=== PATIENT | male | born 1945 | race Caucasian/White ===

== ENCOUNTER 2017-02-05 08:04 | Outpatient (CLI) | payer MEDICARE, BC ==
[~2017-02-05] VITALS: Ht 182.9 cm; Wt 84.1 kg
--- NOTE | ~2017-02-05 | HEMODYNAMI ---
PATIENT:ANABELL CANDELARIO MEDICAL RECORD: [id number] : 43 LOCATION:[facility] ADMISSION DATE: 02/05/17 Generatedon:02/05/201715:25 Patient name: ANABELL CANDELARIO Patient #: [id number] SSN: : 1945 Date of study: 02/05/2017 Page: Of Hemodynamic Procedure Report Patient Data Patient Demographics Procedure consent was obtained First Name: ANABELL Gender: Male Last Name: ANRDEE : 1945 Middle Initial: A Age: 71 year(s) Patient #: [id number] Race: Unknown Additional ID: [id number] Contact details [address]: [address] [place] [address] State: [place] City: [place] Zip code: [address] Admission Admission Data Admission Date: 02/05/2017 Admission Time: 8:04 Height (in.): 72 BSA: 2.06 (m2) Height (cm.): 182.88 BMI: 25.09 (kg/m2) Weight (lbs.): 185 Weight (kg.): 83.91 Lab Results Lab Result Date: 02/05/2017 Lab Result Time: 1:10 Biochemistry Name Units Result Min Max CK-MB ng/ml 1.2 --(-*--)-- 0 3.6 Creatinine l 63 --(*---)-- 21 215 Kinase Troponin l ng/ml 0.018 --(-*--)-- 0 0.06 Procedure Procedure Types Cath Procedure Diagnostic Procedure LHC Coronaries w/Grafts PCI Procedure Coronary Stent Initial Miscellaneous Procedures Moderate Sedation up to 45 minutes Procedure Description Procedure Date Procedure Date: 02/05/2017 Procedure Start Time: 14:52 Procedure End Time: 15:19 Procedure Staff Name Function Luan Jensen RT Monitor Ovidio Paige MD Performing Physician Vianca Perdomo RN Nurse Vianney Fine RT Scrub Procedure Data Cath Procedure Fluoroscopy Diagnostic fluoroscopy Total fluoroscopy Time: time: 10.2 min 10.2 min Diagnostic fluoroscopy Total fluoroscopy dose: dose: 505.69 mGy 505.69 mGy Contrast Material Contrast Material Type Amount (ml) Isovue 300 74 Entry Location Entry Primary Successful Side Size Upsize Upsize Entry Closure Succes sful Closure Location (Fr) 1 (Fr) 2 (Fr) Remarks Device Remarks Femoral Right 5 Fr Exoseal artery Diagnostic catheters Device Type Used For End Catheter Placement Diagnostic Infinity 5Fr Left Coronary JL 6 catheter Angiography Cordis 5Fr 3DRC Catheter SVG Angiography (MP) Procedure Complications No complications Procedure Medications Medication Administration Route Dosage Oxygen NC 2 l/min Heparin Flush Bag added to field 2 bags (1000units/500ml NS) Lidocaine 2% added to field 20 Benadryl I.V. 50 mg Versed I.V. 1 mg Fentanyl I.V. 50 mcg Versed I.V. 1 mg Fentanyl I.V. 50 mcg Versed I.V. 1 mg Fentanyl I.V. 50 mcg Heparin Bolus I.V. 4000 units Integrilin (Bolus I.V. 7.3 ml 2mg/ml) Plavix P.O. 600 mg Hemodynamics Rest BSA: 2.06 (m2) HGB: 14.8 (g/dl) O2 Consumption: Estimated: 228.53 (ml/min) O2 Co nsumption indexed: Estimated:110.94 (ml/min/m) Heart Rate: 58 (bpm) Snapshots Pre Cath Intra NCS Post Cath Vital Signs Time Heart Resp SPO2 NIBP (mmHg) Rhythm Pain Sedation Rate (ipm) (%) Status Level (bpm) 14:39:33 68 23 99 174/107(144) NSR 0 (11) 10(A) , No pain 14:44:32 55 22 100 Measuring NSR 0 (11) 10(A) , No pain 14:44:43 56 22 100 174/105(160) NSR 0 (11) 10(A) , No pain 14:49:07 62 12 99 163/99(148) NSR 0 (11) 10(A) , No pain 14:54:06 70 18 97 Measuring NSR 0 (11) 10(A) , No pain 14:54:26 67 14 97 163/81(134) NSR 0 (11) 10(A) , No pain 14:58:47 59 19 97 159/89(138) NSR 0 (11) 9(A) , No pain 15:03:05 69 18 96 157/93(129) NSR 0 (11) 9(A) , No pain 15:07:23 68 18 96 138/86(115) NSR 0 (11) 9(A) , No pain 15:11:37 69 16 95 132/84(126) NSR 0 (11) 9(A) , No pain 15:15:51 68 16 95 144/85(110) NSR 0 (11) 10(A) , No pain Medications Time Medication Route Dose Verified Delivered Reason Notes Effectiveness by by 14:38:29 Oxygen NC 2 Ovidio Vianca Per physician l/min Royal Perdomo RN 14:38:38 Heparin Flush added 2 Ovidio Ovidio used for Bag to bags Royal Paige MD procedure (1000units/500ml field NS) 14:38:46 Lidocaine 2% added 20ml Ovidio Ovidio used for to vial Royal Paige MD procedure field 14:39:02 Benadryl I.V. 50 mg Ovidio Vianca Per physician Royal Perdomo RN 14:50:19 Versed I.V. 1 mg Ovidio Vianca for sedation Royal Perdomo RN 14:50:45 Fentanyl I.V. 50 Ovidio Vianca for sedation mcg Royal Perdomo RN 14:52:43 Versed I.V. 1 mg Ovidio Vianca for sedation Royal Perdomo RN 14:52:52 Fentanyl I.V. 50 Ovidio Vianca for sedation mcg Royal Perdomo RN 14:55:11 Fentanyl I.V. 50 Ovidio Vianca for sedation mcg Royal Perdomo RN 14:55:58 Versed I.V. 1 mg Ovidio Vianca for sedation Royal Perdomo RN 15:02:41 Heparin Bolus I.V. 4000 Ovidio Vianca for units Royal Perdomo RN anticoagulation 15:02:49 Integrilin I.V. 7.3 Ovidio Vianca for wasted (Bolus 2mg/ml) ml Royal Perdomo RN antiplatelet 2.7 ml therapy 15:16:00 Plavix P.O. 600 Ovidio Vianca for mg Royal Perdomo RN antiplatelet therapy Procedure Log Time Note 14:20:28 Luan Jensen RT(R) sent for patient. Start room use. 14:20:29 Time tracking: Regular hours 14:20:33 Plan of Care:Hemodynamics will remain stable., Cardiac rhythm will remain stable., Comfort level will be maintained., Respiratory function will remain adequate., Patient/ family verbilizes understanding of procedure., Procedure tolerated without complication., Recovers from procedure without complications.. 14:21:24 Procedure type changed to Cath procedure, Diagnostic procedure, LHC, Coronaries w/Grafts, PCI procedure, Coronary Stent Initial, Miscellaneous Procedures, Moderate Sedation up to 45 minutes 14:38:18 Vital chart was started 14:38:29 Oxygen 2 l/min NC was administered by Vianca Perdomo RN; Per physician; 14:38:38 Heparin Flush Bag (1000units/500ml NS) 2 bags added to field was administered by Ovidio Paige MD; used for procedure; 14:38:46 Lidocaine 2% 20ml vial added to field was administered by Ovidio Paige MD; used for procedure; 14:39:02 Benadryl 50 mg I.V. was administered by Vianca Perdomo RN; Per physician; 14:47:21 ACC Patient presents with Stable Angina CCS Anginal Class 2--Slight limitation of ordinary activity. 14:47:24 Diagnostic Cath status Elective 14:47:59 Patient received from Pre/Post Procedure Room to CCL 3 Alert and oriented. Tansferred to table in Supine position. 14:48:00 Warm blankets applied, and mauro hugger turned on for patient comfort. 14:48:00 Correct patient and procedure confirmed by team. 14:48:01 Signed procedure consent form obtained from patient. 14:48:02 ECG and BP/O2 sat monitors applied to patient. 14:48:03 Baseline sample Acquired. 14:48:06 Rhythm: sinus rhythm 14:48:07 Full Disclosure recording started 14:48:17 H&P Date Dictated: 02/02/2017 Within 30 days and on chart., H&P Addendum completed by physician on day of procedure. (MUST COMPLETE FOR ALL OUTPATIENTS). 14:48:18 Pre-op teaching completed and patient verbalized understanding. 14:48:21 Family in waiting room. 14:48:24 Patient NPO since Midnight. 14:48:27 Is the patient allergic to Iodine/contrast media? No. 14:48:41 Is patient on blood thinner?No 14:48:46 ----Pre-sedation anethsthesia assessment.---- 14:48:46 Patient diabetic? No. 14:48:48 Previous problem with sedation/anesthesia? No ? 14:48:49 Snore? Yes 14:48:50 Sleep apnea? No 14:48:51 Deviated septum? No 14:48:53 Opens mouth fully? Yes 14:48:54 Sticks out tongue? Yes 14:48:56 Airway obstruction? No ? 14:48:58 Dentures? No ? 14:49:02 Pre procedure: right dorsailis pedis pulse 1+ Palpable, but thready & weak; easily obliterated 14:49:04 Patient pain scale 0/10 ?. 14:49:21 IV patent on arrival in left hand with 0.9% NaCl at 10ml/hr. 14:49:55 Lab Result : Hemoglobin 14.8 g/dl 14:49:55 Lab Result : Creatinine 3 mg/dl 14:49:55 Lab Result : BUN 34 mg/dl 14:49:59 Lab results completed and on chart. 14:50:02 Alarms reviewed by R. N. 14:50:02 Right groin area was prepped with chlora-prep and draped in sterile fashion 14:50:03 Sharps counted by scrub and verified by R.N. 14:50:04 Final Timeout: patient, procedure, and site verified with staff and physician. All members of the team are in agreement. 14:50:04 --------ALL STOP TIME OUT------ 14:50:08 Right groin site verified by team. 14:50:10 Physical assessment completed. ASA score P 2 - A patient with mild systemic disease as per Ovidio Paige MD. 14:50:13 Sedation plan: IV Moderate Sedation Versed, Fentanyl 14:50:19 Versed 1 mg I.V. was administered by Vianca Perdomo RN; for sedation; 14:50:45 Fentanyl 50 mcg I.V. was administered by Vianca Perdomo RN; for sedation; 14:52:27 Use device set Femoral Dx 14:52:28 Medline Cath Pack opened to sterile field. 14:52:28 Bag Decanter opened to sterile field. 14:52:28 Acist Syringe opened to sterile field. 14:52:29 St Andrea 260cm J .035 wire opened to sterile field. 14:52:29 Terumo 5Fr [place] Sheath opened to sterile field. 14:52:30 Acist Hand Control opened to sterile field. 14:52:31 Diagnostic Infinity 5Fr Multipack catheter opened to sterile field. 14:52:31 Acist Manifold opened to sterile field. 14:52:32 Tegaderm 4 x 4 opened to sterile field. 14:52:39 Procedure started. 14:52:43 Versed 1 mg I.V. was administered by Vianca Perdomo RN; for sedation; 14:52:50 Local anesthetic to right femoral artery with Lidocaine 2% by Ovidio Paige MD.INITIAL ACCESS ONLY 14:52:52 Fentanyl 50 mcg I.V. was administered by Vianca Perdomo RN; for sedation; 14:52:58 A 5 Fr sheath was inserted into the Right Femoral artery 14:55:11 Fentanyl 50 mcg I.V. was administered by Vianca Perdomo RN; for sedation; 14:55:41 Zero performed for pressure channel P1 14:55:44 Zero performed for pressure channel P1 14:55:58 Versed 1 mg I.V. was administered by Vianca Perdomo RN; for sedation; 14:57:07 A Diagnostic Infinity 5Fr JL 6 catheter was advanced over the wire and used for Left Coronary Angiography. 14:57:16 LCA angiography performed. 14:57:18 Catheter removed. 14:58:09 A Cordis 5Fr 3DRC Catheter () was advanced over the wire and used for SVG Angiography. 15:00:18 FIERRO to LAD angiography performed. 15:00:39 RCA angiography performed. 15:00:48 SVG to RCA angiography performed. 15:02:10 Terumo 6Fr [place] Sheath opened to sterile field. 15:02:11 Merit BasixCompak Inflation Kit opened to sterile field. 15:02:11 Ward Sci Choice PT Extra Support J 300cm .014 gu opened to sterile field. 15:02:16 Catheter removed. 15:02:41 Heparin Bolus 4000 units I.V. was administered by Vianca Perodmo RN; for anticoagulation; 15:02:49 Integrilin (Bolus 2mg/ml) 7.3 ml I.V. was administered by Vianca Perdomo RN; for antiplatelet therapy; wasted 2.7 ml 15:02:52 Medtronic Launcher 6Fr EBU 5.0 guide catheter opened to sterile field. 15:03:58 ACC PCI Site: pLAD has 100% stenosis. 15:04:01 ACC Pre-intervention NICOLE Flow is 3. 15:04:09 6 Fr EBU 5 guide catheter was inserted over the wire 15:04:13 CPTES wire advanced. 15:06:30 Inflation number: 1 A [facility] Burt 1.5 X 15 balloon was prepped and advanced across the Prox LAD, then inflated to 17 GALINA for 0:16 (min:sec). 15:06:51 Balloon removed over the wire. 15:08:01 Lab Result : Troponin l 0.018 ng/ml 15:08:01 Lab Result : Creatinine Kinase 63 l 15:08:01 Lab Result : CK-MB 1.2 ng/ml 15:08:27 Inflation Number: 2 A Biofreedom 2.25 x 11 Stent (No Cost Implant) was prepped and advanced across the Prox LAD. The stent was deployed at 11 GALINA for 0:10 (min:sec). 15:08:35 ACC Post-intervention NICOLE Flow is 3. 15:08:35 Stent catheter was removed intact over wire. 15:08:39 Wire removed. 15:08:47 ACC PCI Site: pCirc has 100% stenosis. 15:08:57 ACC Pre-intervention NICOLE Flow is 1. 15:09:02 CPTES wire advanced. 15:10:20 Patient Height : 182.88 cm 15:10:24 Patient Weight : 83.91 kg 15:11:10 Wire removed. 15:11:12 Pettit Fielder XT J 300cm 0.014 guide wire opened to sterile field. 15:11:22 FIELDER wire advanced. 15:13:57 Wire removed. 15:14:01 Guide catheter removed. 15:14:07 Contrast amount:Isovue 300 74ml. 15:14:13 Sheath removed intact; hemostasis achieved with Exoseal to the Right Femoral artery. 15:14:20 Cordis 6Fr Exoseal opened to sterile field. 15:14:33 Procedure ended.(Physican Out) 15:15:06 Fluoroscopy time 10.20 minutes. 15:15:12 Fluoroscopy dose: 505.69 mGy 15:15:12 Flurop Dose total: 505.69 15:15:13 Sharps counted by scrub and verified by R.N. 15:15:14 Insertion/operative site no bleeding no hematoma. 15:15:17 Post-op/insertion site Right Femoral artery dressed using a 4 x 4 and Tegaderm. 15:15:20 Post right femoral artery:stable 15:15:21 Post Procedure Pulses reassessed and unchanged 15:15:23 Post procedure: right dorsailis pedis pulse 1+ Palpable, but thready & weak; easily obliterated. 15:15:26 Post procedure rhythm: sinus rhythm 15:15:28 Post procedure instruction explained to patient.Patient verbalizes understanding. 15:16:00 Plavix 600 mg P.O. was administered by Vianca Perdomo RN; for antiplatelet therapy; 15:16:16 Procedure and supply charges have been captured, reviewed, submitted and are correct. 15:16:22 Procedure Complication : No complications 15:18:59 Vital chart was stopped 15:19:00 See physician's report for complete and final results. 15:19:03 Report given to Pre/Post Procedure Room. 15:19:06 Patient transfered to Pre/Post Procedure Room with Stretcher. 15:19:08 Full Disclosure recording stopped 15:19:08 Procedure ended. 15:23:30 ACC-PCI Only Patient was given prescriptions, or instructed by Ovidio Paige MD to start/continue the following medications upon discharge: Plavix 15:23:31 End room use (Document Last) Intervention Summary Intervention Notes Time ActionType Lesion and Equipment Action# Pressure Duration Attributes Used 15:06:30 Inflate Prox LAD Ward Sci 1 17 00:16 balloon Burt 1.5 X 15 balloon 15:08:27 [address] stent Prox LAD Biofreedom 2 11 00:10 2.25 x 11 Stent (No Cost Implant) Device Usage Item Name Manufacture Quantity Catalog Number Hospital Part Current Mini mal Lot# / Charge Number Stock Stock Serial# Code Acist Acist 1 [id number] [id number] 107275 908948 20 Tricentis [employer] Bag Microtek 1 2002S 037041 38452 598083 5 Decanter Medical Inc. Medline Cardinal 1 [id number] 705567 63108 611977 5 Cath Pack Health Terumo 5Fr Terumo 1 [id number] 031462 561853 156616 [address] St Andrea 1 935395 835188 559428 706374 30 260cm J .035 wire Acist Hand Acist 1 64383 378934 815577 810719 5 Control Medical Systems Inc Acist Acist 1 02903 443454 595622 070963 5 Flash Ambition [employer] Medical Systems Inc Diagnostic Cardinal 1 [id number] 429150 71130 130279 30 Nirvaha 5Fr Multipack catheter Tegaderm 4 3M 1 1626W 463074 696908 336973 5 x 4 Diagnostic Cardinal 1 [id number] 458479 014991 200979 5 Nirvaha 5Fr JL 6 catheter Cordis 5Fr Cardinal 1 031676 5 [facility] Farmeto Catheter (MP) Terumo 6Fr Terumo 1 [id number] 572031 429598 303142 40 [place] Sheath Ward Sci Ward 1 [id number] 270451 20190207 566249 5 Choice PT Scientific Extra Support J 300cm .014 gu Merit Merit 1 SI2046 933744 235129 552111 15 BasixCompak Medical Inflation Kit Medtronic Medtronic 1 [id number] 704994 40851 449434 0 Launcher 6Fr EBU 5.0 guide catheter Ward Sci Ward 1 [id number] 145262 004422 942506 1 [id number] elicit 1.5 X 15 balloon Biofreedom Biosensors 1 [id number] 449287 226100 5 [id number] 2.25 x 11 [employer] SA Stent (No Cost Implant) Pettit Pettit 1 [id number] 756858 860038 504484 5 Fielder XT Vascular J 300cm 0.014 guide wire Cordis 6Fr Cardinal 1 EX600 333144 392703 301556 10 [facility] Farm[facility] Signature Audit [place] Stage Time Signature Unsigned Intra-Procedure 02/05/2017 Luan Jensen 3:25:27 PM RT(R) Signatures Monitor : Luan Jensen RT Signature : Date : Time : [place] [address] [address]
--- NOTE | ~2017-02-05 | PRO ---
PATIENT:ANABELL CANDELARIO MEDICAL RECORD: [id number] : 43 LOCATION:[facility] ADMISSION DATE: 02/05/17 PROCEDURE PERFORMED BY: PRANAV ABRAMS MD PTCA/LEFT HEART CATHETERIZATION PROCEDURES: 1. Percutaneous transluminal coronary angioplasty stent left anterior descending artery. 2. Left heart catheterization. 3. Selective coronary angiography. 4. Left internal mammary artery angiography. INDICATION: Angina, coronary artery disease. PROCEDURE IN DETAIL: After informed consent was obtained and after detailed explanation of risks, benefits, as well as alternative therapies, the patient elected to proceed with angiogram. The right femoral area was prepped and draped in a normal sterile fashion. The right femoral artery was cannulated via modified Seldinger technique with placement of 6-Russian sheath. All catheters exchanged through this sheath. FINDINGS: Left ventriculogram was not performed due to dye conservation due to renal insufficiency. SELECTIVE CORONARY ANGIOGRAPHY: 1. Left main is with no significant angiographic disease. 2. Left anterior descending is totally occluded. We previously intervened into the proximal left anterior descending opening this up to a nongrafted diagonal in 2010. This is now 99-100% closed in the proximal area. The left anterior descending is then 100% closed after the diagonal. 3. Left internal mammary artery to the distal left anterior descending artery is widely patent. This fills the entire coronary system. 4. Left circumflex is totally occluded. 5. Right coronary artery is totally occluded. 6. All vein grafts are totally occluded. PTCA STENT OF THE PROXIMAL LAD: We were able to wire through the occlusion in the proximal left anterior descending into the diagonal stenting. This was a 2.25 X 11 millimeter BioFreedom stent. Occlusion appears to be an 8 millimeter lesion in a 2.25 vessel 99% stenosed. OVERALL IMPRESSION: Successful percutaneous transluminal coronary angioplasty stent of the left anterior descending going from 99% initial stenosis to 0% residual stenosis. PROCEDURE NOTE [id number] ANABELL CANDELARIO PRANAV ABRAMS MD CC: [id number] DICTATION DATE: 02/05/17 1300 TECHNICAL PROPOSAL WRITER: TC 02/06/17 1300 DEP CLI 02/05/17 [place] [address]
[2017-02-05] MEDS ORDERED: RANEXA1000 MG PO (08:48)
[2017-02-05] MEDS ORDERED: COREG25 MG PO (08:49)
[2017-02-05] MEDS ORDERED: TEKTURNA300 MG PO (08:49)
[2017-02-05] MEDS ORDERED: COUMADIN1 MG PO (08:50)
[2017-02-05 08:52] VITALS: BP 133/85; Ht 182.9 cm; Wt 84.1 kg
[2017-02-05] MEDS ORDERED: LIPITOR80 MG PO (09:02)
[2017-02-05 09:13] LABS: BASOPHILS 0.3 % (0-2); EOSINOPHILS 2.1 % (0-7); HEMATOCRIT 45.3 % (42.0-54.0); HEMOGLOBIN 14.8 g/dL (13.5-17.5); IMMATURE GRANULOCYTES 0.7 % (0-5); LYMPHOCYTES 20.2 % (15-50); MCH 27.6 pg (26.0-34.0); MCHC 32.7 g/dL (31.0-37.0); MCV 84.4 fL (80.0-100.0); MEAN PLATELET VOLUME 9.8 fL (7.4-10.4); MONOCYTES 7.3 % (2-11); NEUTROPHILS 69.4 % (40-80); PLATELET COUNT 127 10x3/uL (130-400); RBC 5.37 10x6/uL (4.20-6.10); RDW 17.4 % (11.5-14.5); WBC 7.3 10x3/uL (4.8-10.8)
[2017-02-05 09:34] LABS: INR 1.05 (0.85-1.17); PROTIME 13.5 SECONDS (11.6-15.0)
[2017-02-05 09:38] LABS: CALC OSMOLALITY 280 mosm/kg (275-300); CALCIUM 9.3 mg/dL (8.5-10.1); CARBON DIOXIDE 21.9 mmol/L (21.0-32.0); CHLORIDE - SERUM 105 mmol/L (98-107); CKMB 1.2 U/L (0.0-3.6); CREATINE KINASE 63 UL (21-232); GLUCOSE 111 mg/dL (74-106); POTASSIUM - SERUM 5.4 mmol/L (3.5-5.1); SODIUM 136 mmol/L (136-145); TROPONIN-I 0.018 ng/mL (0.000-0.060); UREA NITROGEN 34 mg/dL (7-18); eGFR NON AFRICAN AMERICAN 22 mL/min (90-120)
[2017-02-05] MEDS ORDERED: PLAVIX75 MG PO ×2 (12:45→15:44)
--- NOTE | 2017-02-05 17:18 | NUR ---
1550 LYING FLAT, ROOM AIR WITH NO DISTRESS. NSR RATE 65 W NO C/O CHEST PAIN. PULSES PALP X 4. FAMILY AT BEDSIDE. R GROIN 6F EXOSEAL C/D/I WITH NO HEMATOMA OR BLEEDING. WILL MONITOR CLOSELY FOR BLEEDING. 1630 REMAINS FLAT, ALL VITALS WNL. R GROIN 6F EXOSEAL C/D/I. 1715 LAB AT BEDSIDE FOR POST STUDY ENZYMES. R GROIN REMAINS C/D/I WITH NO HEMATOMA OR BLEEDING.
[2017-02-05 18:04] LABS: CKMB 1.2 U/L (0.0-3.6); CREATINE KINASE 61 UL (21-232); CREATININE - SERUM 2.8 mg/dL (0.6-1.3); TROPONIN-I 0.029 ng/mL (0.000-0.060)
--- NOTE | 2017-02-05 18:38 | NUR ---
1830 HOB ELEVATED, EATING SANDWICH. FAMILY AT BEDSIDE. WILL MONITOR R GROIN 6F EXOSEAL FOR BLEEDING OR HEMATOMA.
--- NOTE | 2017-02-05 19:19 | NUR ---
1918 PIV REMOVED WITH BANDAID APPLIED. UP TO BEDSIDE TO DRESS. R GROIN REMAINS C/D/I WITH NO HEMATOMA OR BLEEDING. D/C INSTRUCTIONS DISCUSSED WITH PATIENT AND FAMILY AT BEDSIDE. WHEELED OUT VIA WHEELCHAIR.
== END 2017-02-05 19:24 | disposition home or self-care (01) ==
LOC: D.CATH 08:04
PROVIDERS: Internal Medicine Interventional Cardiology
DX: I25.119 Atherosclerotic heart disease of native coronary artery with unspecified angina pectoris (principal); I25.719 Atherosclerosis of autologous vein coronary artery bypass graft(s) with unspecified angina pectoris; Z00.6 Encounter for examination for normal comparison and control in clinical research program; Z01.812 Encounter for preprocedural laboratory examination
CPT/HCPCS: 93454; C9600

== ENCOUNTER → 2017-07-28 08:16 | Outpatient (CLI) | payer MEDICARE, BC ==
[2017-02-05 08:52] VITALS: BMI 25.1
[~2017-07-28 08:16] MED LIST: COREG25 MG PO; COUMADIN1 MG PO; LIPITOR80 MG PO; PLAVIX75 MG PO; RANEXA1000 MG PO; TEKTURNA300 MG PO
== END | disposition home or self-care (01) ==
LOC: D.US 08:16
DX: I71.4 Abdominal aortic aneurysm, without rupture (principal)

== ENCOUNTER → 2018-09-26 13:20 | Outpatient (CLI) | payer MEDICARE, BC ==
[2017-02-05 08:52] VITALS: BMI 25.1
== END | disposition home or self-care (01) ==
LOC: D.CT 09-21 08:00
DX: I71.4 Abdominal aortic aneurysm, without rupture (principal)

== ENCOUNTER → 2019-12-25 09:48 | Outpatient (CLI) | payer MEDICARE, BC ==
[2017-02-05 08:52] VITALS: BMI 25.1
== END | disposition home or self-care (01) ==
LOC: D.RAD 09:48
PROVIDERS: ATTEND Allergy & Immunology
DX: J32.0 Chronic maxillary sinusitis (principal)

== ENCOUNTER 2020-04-24 16:15 | Emergency (ER) | payer MEDICARE, BC ==
[~2020-04-24] VITALS: Ht 182.9 cm; Wt 84.1 kg
[2020-04-24 16:38] VITALS: Ht 182.9 cm; Wt 84.1 kg
[2020-04-24 17:38] LABS: BASOPHILS 0.5 % (0-2); EOSINOPHILS 1.9 % (0-7); HEMATOCRIT 39.9 % (42.0-54.0); HEMOGLOBIN 12.7 g/dL (13.5-17.5); IMMATURE GRANULOCYTES 0.3 % (0-5); LYMPHOCYTES 24.3 % (15-50); MCH 24.8 pg (26.0-34.0); MCHC 31.8 g/dL (31.0-37.0); MCV 77.8 fL (80.0-100.0); MEAN PLATELET VOLUME 9.2 fL (7.4-10.4); MONOCYTES 5.4 % (2-11); NEUTROPHILS 67.6 % (40-80); RBC 5.13 10x6/uL (4.20-6.10); RDW 19.1 % (11.5-14.5); WBC 5.8 10x3/uL (4.8-10.8)
[2020-04-24 17:39] LABS: PLATELET COUNT 163 10x3/uL (130-400)
[2020-04-24 17:47] LABS: APTT 42.3 SECONDS (22.8-39.4); INR 2.68 (0.85-1.17)
[2020-04-24 17:59] LABS: ANION GAP 11.5 mmol/L (8-16); CALCIUM 8.8 mg/dL (8.5-10.1); CARBON DIOXIDE 24.3 mmol/L (21.0-32.0); POTASSIUM - SERUM 4.8 mmol/L (3.5-5.1)
[2020-04-24 18:03] LABS: ALBUMIN 3.7 g/dL (3.4-5.0); BILIRUBIN - TOTAL 0.5 mg/dL (0.2-1.3); PROTEIN - SERUM 7.7 g/dL (6.4-8.2)
[2020-04-24] MEDS ORDERED: VIBRAMYCIN 100100 MG PO (18:08)
[2020-04-24 18:17] VITALS: BP 146/85
== END 2020-04-24 18:20 | disposition home or self-care (01) ==
LOC: D.ER 16:15
DX: L03.115 Cellulitis of right lower limb (principal); I10 Essential (primary) hypertension; Z95.5 Presence of coronary angioplasty implant and graft; Z95.1 Presence of aortocoronary bypass graft

== ENCOUNTER → 2020-10-21 10:49 | Outpatient (CLI) | payer MEDICARE ==
[2020-04-24 16:38] VITALS: BMI 25.1
[~2020-10-21 10:49] MED LIST changes: +VIBRAMYCIN 100100 MG PO
== END | disposition home or self-care (01) ==
LOC: D.CT 10:30
PROVIDERS: ATTEND Thoracic Surgery (Cardiothoracic Vascular Surgery)
DX: I71.4 Abdominal aortic aneurysm, without rupture (principal)